=== PATIENT | female | born 2000 | race Caucasian/White ===

== ENCOUNTER 2024-09-05 05:57 | Emergency (ER) | payer MEDICAID ==
[~2024-09-05] VITALS: Ht 165.1 cm; Wt 63.6 kg
--- NOTE | 2024-09-05 06:37 | Physician Documentation ---
History of Present Illness Chief Complaint: Flank Pain Stated Complaint: MULTIPLE ISSUES Time Seen by MD: 06:18 HPI This is a 24-year-old female on autism spectrum disorder, status post recent jaw extension surgery at [facility], comes in complaining of left flank pain, nausea, difficulty urinating similar to prior kidney stones starting some tenderness night without any obvious trigger provocation. No particular palliating or aggravating factors., ibuprofen and Tylenol that she takes it is not helping. She also reports pain in her left ear and jaw, subacute since the surgery on her jaw. She had run out of oxycodone and was not given refill prescription and told to management ibuprofen and Tylenol. She is followed by [facility]. Continues to complain of martinez pain and lip swelling. No acute changes. No other complaints. No concern for tobacco, alcohol or illicit substances use Medication Reconciliation Allergies: Coded Allergies: No Known Allergies (Unverified , 09/05/24) Review of Systems ROS 10 point review of systems was performed and unless noted above in HPI is negative for acute process/complaint. Physical Exam Vital Signs: Temperature: 97.4, Source: Oral, Heart Rate: 103, Respiratory Rate: 20, BP: 99/64, Pulse Oximetry: 97, Weight: 63.640 Physical Exam Physical examination: GENERAL: Awake, alert, oriented, GCS 15, no apparent distress, non-toxic appearing, answers questions, follows commands appropriately. HEENT: Atraumatic, normocephalic, pupils equal, extraocular muscles intact Active gross movements, sclerae anicteric, mucus membranes moist, no stridor. NECK: Midline, no JVD CARDIOVASCULAR: Good skin perfusion without evidence of pallor, mottling. PULMONARY: Nonlabored, symmetric chest rise, no audible wheezing, no accessory muscle use, no respiratory distress, speaking in full sentences. GASTROINTESTINAL: Not distended. NEUROLOGIC: Lucid with normal mental status. Normal facial symmetry. Moves all extremities symmetrically and with purpose. No truncal ataxia. Speech is fluid without evidence of dysarthria or aphasia, no focal deficits appreciated. EXTREMITIES: Acute deformities Skin: warm, dry PSYCHIATRIC: Normal affect, normal insight, normal concentration. Focused exam: [] Progress Results/Orders Results/Orders Vital Signs 09/05/24 05:59 Temp 97.4 Pulse 103 Resp 20 B/P (MAP) 99/64 Pulse Ox 97 Medical Decision Making Findings Facility Status: ED Holds, RME process The plan was discussed with the patient, who demonstrates clear understanding of the plan and is in agreement with the plan unless otherwise noted in the chart. All questions have been answered, all concerns were addressed unless otherwise documented. I was available throughout their ED stay for frequent reassessment and questions. Differential Diagnoses (considered and possible or likely): [Urinary tract infection, pyelitis, pyelonephritis, kidney stone, less likely infected kidney stone/emphysematous pyelonephritis, subacute jaw pain/postoperative pain. Unlikely to represent acute intra-abdominal process requiring surgical intervention.] ??Differential Diagnoses (considered and unlikely, not requiring evaluation currently): [See above] MDM Data Please see [facility] for the following: Independent Historians and external Records Review. Historian: [Patient] Independent Historians: ?[Dad] Medication Management: [Reviewed medication list] Social History and determinants: [Reviewed] Please see the body of the note for the following: Any independent interpretations of ECG, imaging studies. All vitals signs/haemodynamics, ordered tests were independently reviewed and interpreted by myself. Nursing triage complaint and vitals reviewed, additional nursing notes were reviewed as available and I agree unless otherwise noted or documented in contradiction in the chart Vital Signs: Independently reviewed Labs: Independently interpreted Imaging: Independently interpreted Old Medical Records: Independently reviewed, see HPI for relevant summary and information Pulse Oximetry: [99%] interpreted as [normal on room air] by me [Technical Education Teacher: [Regular Rate, Regular rhythm, no ectopy, NSR] reviewed and interpreted by me] Additionally notably showing: [Patient is hemodynamically stable. Laboratory workup notable for mild anemia, urinary tract infection. CT of the abdomen and pelvis did not reveal any acute pathology] Tests considered but not ordered include: [Ultrasound has been considerably does not appear to be necessary in chemo who presenting complaint] Social Determinants of Health Impact: Patient was evaluated in [facility], [facility] [place] healthcare due to below par ratio of patient to medical providers. [] Comorbid Conditions Impacting Present Evaluation and Care/Treatment: [Autism spectrum disorder] Management Discussions with other Healthcare Providers: [None] Treatment and Disposition Medication Management (Given or considered): [Pain management, nausea management, antibiotics]. See EMR for details Consideration for Hospitalization/Escalation/Deescalation of Care: Admission for observation has been considered, [however the patient is able to tolerate p.o., their symptoms are controlled, they are able to rely on oral medications, and their chief complaint/diagnosis can be managed on outpatient basis.] ?ED Course:?[Improved.] ?Shared decision making:?[Patient is hemodynamically stable for discharge home with follow with their primary care provider. [ ] Specific and cautious return precautions provided and discussed with full understanding. Any incidental findings were also discussed and follow up recommendations given. [] All questions answered. Patient/family were able to verbalize back return precautions. Patient/family agree to plan. Copies of imaging and laboratory studies were provided.] Code status:?FULL Please see the full Electronic Medical Record for full details of nursing documentation, medications list, other records of complete past medical history and conditions, vital signs, laboratory studies, and any radiologic study interpretations by radiologists. Portions of this note were completed using [employer] dictation software and as a result there may exist minor errors in spelling. I have reviewed elements of past family and social history and agree as included in note. Departure Disposition: 01 HOME / SELF CARE / HOMELESS Impression: Primary Impression: Pyelonephritis of left kidney Condition: Improved Discharge Instructions: Pyelonephritis, Adult Referrals: NO PRIMARY CARE PROVIDER (PCP) Prescriptions Cefdinir (CEFDINIR) 300 Mg Capsule 1 CAP PO Q12H for 10 Days, #20 CAP 0 Refills Prov: STEVE PATEL DO 09/05/24 ONDANSETRON ODT 4mg tablet (ONDANSETRON ODT) 4 Mg Tab.rapdis 1 TAB PO Q6H PRN PRN for nausea/vomiting for 4 Days, #16 TAB 0 Refills Prov: STEVE PATEL DO 09/05/24 Education Educated: Patient, Family Educated regarding: diagnosis, treatment, prognosis, need for follow up (Description my vascular intake has a) Signature Scribe Signature: No scribe Attestation: This note accurately reflects clinical decisions, work performed by myself, DO JORGE Liang NICHOLAS M DO Sep 05, 2024 06:37
[2024-09-05] MEDS: morphine 4 MG/ML inj SYRINge IV ONE (07:09)
[2024-09-05] MEDS: ondansetron/PF 4mg/2ml inj IV ONE (07:10)
[2024-09-05 07:17] LABS: BASOPHILS % (AUTO) 0.6 % (0-1); EOSINOPHILS # (AUTO) 0.2 X10'3 (0-0.9); EOSINOPHILS % (AUTO) 2.9 % (0-6); HEMATOCRIT 31.9 % (35.0-45.0); HEMOGLOBIN 10.3 g/dl (12.0-16.0); LYMPHOCYTES # (AUTO) 1.5 X10'3 (1.1-4.8); LYMPHOCYTES % (AUTO) 26.1 % (21-51); MEAN CORPUSCULAR HGB CONC 32.1 g/dL (33.0-36.5); MEAN CORPUSCULAR VOLUME 77.9 FL (78-98); MEAN PLATELET VOLUME 7.3 FL (7.4-10.4); MONOCYTES # (AUTO) 0.4 X10'3 (0-0.9); MONOCYTES % (AUTO) 7.2 % (2-12); NEUTROPHILS # (AUTO) 3.7 X10'3 (1.8-7.7); NEUTROPHILS % (AUTO) 63.2 % (42-75); PLATELET COUNT 372 X10'3 (140-440); RED CELL DISTRIBUTION WIDTH 18.1 % (11.5-14.5); WHITE BLOOD COUNT 5.8 X10'3 (4.5-11.0)
[2024-09-05 07:22] LABS: URINE HCG NEGATIVE (NEG)
[2024-09-05 07:25] LABS: BILIRUBIN,URINE NEGATIVE (Neg); CLARITY,URINE SLIGHTLY CLOUDY (Clear); COLOR,URINE YELLOW (Yellow); GLUCOSE, URINE NEGATIVE (Neg); KETONES,URINE NEGATIVE (Neg); LEUKOCYTE ESTERASE ,URINE TRACE (Neg); NITRITES, URINE NEGATIVE (Neg); OCCULT BLOOD,URINE NEGATIVE (Neg); PROTEIN,URINE NEGATIVE (Neg); UROBILINOGEN,URINE 0.2 E.U/dL (0.2-1.0)
[2024-09-05 07:28] LABS: UA COLLECTION TYPE CLN CATCH MIDSTREAM
[2024-09-05 07:31] LABS: BACTERIA,URINE 3+ /HPF (Neg); RBC,URINE NONE SEEN /HPF (0-2); SQUAMOUS EPITHELIAL CELL,UR MANY /LPF (FEW)
[2024-09-05 07:32] LABS: MUCUS STRANDS MODERATE /LPF (Neg)
[2024-09-05 07:37] LABS: ALANINE AMINOTRANSFERASE 13 U/L (12-78); ALBUMIN 3.5 G/DL (3.4-5.0); ALBUMIN/GLOBULIN RATIO 0.9 (1.1-1.5); ALKALINE PHOSPHATASE 64 IU/L (46-116); ANION GAP 12 (8-16); ASPARTATE AMINO TRANSFERASE 12 U/L (10-37); BILIRUBIN,TOTAL 0.5 MG/DL (0.1-1.0); BLOOD UREA NITROGEN 9 MG/DL (7-18); BUN/CREATININE RATIO 12.9 (10.0-20.0); CALCIUM 8.8 MG/DL (8.5-10.1); CHLORIDE 105 MMOL/L (99-107); GLUCOSE 97 MG/DL (70-104); LIPASE 23 U/L (16-77); POTASSIUM 3.6 MMOL/L (3.5-5.1); SODIUM 140 MMOL/L (135-145); TOTAL CARBON DIOXIDE 23.3 MMOL/L (24-32); TOTAL PROTEIN 7.6 G/DL (6.4-8.2); eCRCL 113 ML/MIN; eGFR > 90 ML/MIN
[2024-09-05] MEDS ORDERED: iohexol 300mg/ml 100ml inj. ONE (08:10)
[2024-09-05] MEDS: CefTRIAXone/D5W-Rocephin 1gm 50 ML IV ONE (08:12)
--- NOTE | 2024-09-05 09:04 | RADIOLOGY REPORT ---
Exam: CT CT ABDOMEN PELVIS W/ IV CONTRAST History: L flank pain COMPARISON: None Technique: Multidetector spiral CT of the abdomen and pelvis was performed from lung bases to pubic s ymphysis. Intravenous contrast was administered during this examination. Portal venous imaging was o btained. Axial, coronal and sagittal multiplanar reformats were performed by the technologist on a [employer] workstation. Radiation Dose : 1. Abdomen/Pelvis: CTDIvol 11.7 mGy, DLP 561.03 mGy*cm. CONTRAST: Type of contrast: Omnipaque 300 Contrast injected: 85 ml Findings: Lung Bases: No acute or significant lung base finding. Normal heart size. No pleural or pericardial effusion. Liver: The liver is normal in size. No focal lesions. Normal hepatic vascular enhancement. Gallbladder and Biliary Tree: Unremarkable Spleen: Unremarkable Pancreas: The pancreas is normal in appearance without focal lesions or abnormal enhancement. Adrenal Glands: Unremarkable Kidneys: No evidence of hydronephrosis. Nonobstructing right inferior pole pelvocaliceal calculus m easures 6 mm. Bladder: Unremarkable Bowel: The stomach is grossly normal in appearance. Small bowel and colon are normal in caliber and d istribution. The appendix is not visualized; however, no secondary findings of acute appendicitis eriberto ntified. Ascites: Absent Lymphadenopathy: No mesenteric, retroperitoneal or periportal lymphadenopathy. Abdominal Wall and Mesentery: Unremarkable. Vasculature: The visualized abdominal aorta is normal in size and caliber. Abdominal and pelvic vess els demonstrate normal enhancement. Pelvic Organs: Unremarkable. Likely physiologic endometrial fluid. Musculoskeletal: No aggressive focal bony lesions, acute fractures or dislocation. IMPRESSION: 1. No acute abdominal or pelvic finding. 2. Nonobstructive right nephrolithiasis. Radiation optimization: All CT scans at this facility use at least one of these dose optimization kezia hniques: automated exposure control mA and/or kV adjustment per patient size (includes targeted exam s where dose is matched to clinical indication) or iterative reconstruction.
[2024-09-05] MEDS ORDERED: CEFD300C3 PO (10:27)
[2024-09-05] MEDS ORDERED: ONDA-243 PO (10:27)
[2024-09-05 10:42] VITALS: BP 97/64; PULSE 71; RESP 16; TEMP 98; O2SAT 100
== END 2024-09-05 10:43 | disposition home or self-care (01) ==
LOC: ER 05:58
DX: N12 Tubulo-interstitial nephritis, not specified as acute or chronic (principal); H92.02 Otalgia, left ear
CPT/HCPCS: 36415; 74177; 80053; 81001; 81025; 83690; 85025; 96365; 96375; 99285; J0696; J2270; J2405; Q9967

== ENCOUNTER 2024-09-10 12:43 | Emergency (ER) | payer MEDICAID ==
[~2024-09-10] VITALS: Ht 165.1 cm; Wt 63.3 kg
[~2024-09-10 12:43] MED LIST: CEFD300C3 PO; ONDA-243 PO
[2024-09-10 12:44] VITALS: BP 121/67; PULSE 115; RESP 18; TEMP 97.9; O2SAT 98
[2024-09-10] MEDS ORDERED: AMOX-117 PO (12:50)
--- NOTE | 2024-09-10 12:51 | Physician Documentation ---
History of Present Illness ~ Stated Complaint: EAR PAIN HPI 24-year-old female who presents to the emergency department for left ear pain. She does note that she is currently taking antibiotics for a urinary tract infection. She denies fevers or chills, but has had nausea, which she reports is due to pain. Medication Reconciliation Allergies: Uncoded Allergies: PENICILLIN (Allergy, Unknown, RASH, 09/10/24) Scheduled Amox Tr/Potassium Clavulanate (Augmentin 875-125 Tablet), 1 TAB PO Q12H Cefdinir (Cefdinir), 1 CAP PO Q12H Scheduled PRN ONDANSETRON ODT 4mg tablet (Ondansetron Odt), 1 TAB PO Q6H PRN PRN for nausea/vomiting Ondansetron 8mg ODT (Ondansetron Odt), 1 TAB PO TID PRN for nausea/vomiting Review of Systems ROS As stated above in the HPI, otherwise all systems are reviewed and negative. Physical Exam Physical Exam General: Alert, crying due to pain. Appears anxious. HEENT: PERRL, EOMI, no injection, moist mucous membranes. Normal right canal and TM. Left TM erythematous as is the canal. No mastoid tenderness. Neck: Full range of motion. Respiratory: Lungs clear, no respiratory distress. Chest: No accessory muscle use. Cardiovascular: Regular rate and rhythm, no murmurs. Tachycardic, crying on exam. Gastrointestinal: Soft, nontender, nondistended. Bowels sounds present. Extremities: Normal range of motion, no deformity. Neurologic: Oriented x4. Psychiatric: Normal mood and affect. Skin: Normal color, warm and dry. No edema, no ecchymosis. Progress Results/Orders Results/Orders Vital Signs 09/10/24 12:44 Temp 97.9 Pulse 115 Resp 18 B/P (MAP) 121/67 Pulse Ox 98 O2 Flow Rate 0 Medical Decision Making Ear Diff. Dx: Considerations: Include: Abrasion, Cerumen impaction, Foreign body, Otitis externa, Barotrauma, Otitis media, Perforation Departure Time of Disposition: 12:49 Disposition: 01 HOME / SELF CARE / HOMELESS Impression: Primary Impression: Left otitis media Condition: Stable Discharge Instructions: Otitis Media, Adult Additional Instructions: The antibiotic that you are that you are already taking for UTI, cefdinir, co vers for ear infection as well as the urinary tract infection. You can try [id number] ear pain relief drops. Take Tylenol or the prescribed naproxen as needed for pain. Return if worse. Referrals: NO PRIMARY CARE PROVIDER (PCP) Prescriptions Naproxen (Naproxen) 500 Mg Tablet 1 TAB PO Q12H, #20 TAB Prov: JOANNA ROGER NP 09/10/24 Ondansetron 8mg ODT (Ondansetron Odt) 8 Mg Tab.rapdis 1 TAB PO TID PRN for nausea/vomiting, #10 TAB Prov: JOANNA ROGRE NP 09/10/24 Education Educated: Patient Educated regarding: diagnosis, treatment, prognosis, need for follow up Signature Scribe Signature: x Attestation: The note accurately reflects work and decisions made by me.Joanna Bull NP 09/10/24 12:54 JOANNA ROGER NP Sep 10, 2024 12:51
[2024-09-10] MEDS ORDERED: ONDA-245 PO (12:54)
[2024-09-10] MEDS ORDERED: NAPR-56 PO (13:02)
== END 2024-09-10 13:08 | disposition home or self-care (01) ==
LOC: ER 12:44
DX: H66.92 Otitis media, unspecified, left ear (principal)
CPT/HCPCS: 99283